=== PATIENT | female | born 1995 | race Caucasian/White ===

== ENCOUNTER 2025-06-18 04:23 | Emergency (ER) | payer OTHER ==
[~2025-06-18] VITALS: Ht 162.6 cm; Wt 79.5 kg
--- NOTE | 2025-06-18 04:38 | Physician Documentation ---
HPI ~ General Chief Complaint: Tooth Problem Stated Complaint: DENTAL PAIN Time Seen by MD: 04:37 History of Present Illness HPI Comment Patient presents to the emergency room with chief complaint of dental pain. She recently saw a dentist who put her on antibiotics however that has yesterday and she has been able to get them filled. She has taken ibuprofen Tylenol and Oraj el with limited benefit. No fevers Medication Reconciliation Allergies: Coded Allergies: cat dander (Verified Allergy, Unknown, 06/18/25) Review of Systems ROS All review of systems negative except as per HPI Physical Exam Vital Signs: Temperature: 97.7, Source: Oral, Heart Rate: 92, Respiratory Rate: 16, BP: 117/71, Pulse Oximetry: 98, Weight: 79.450 Oxygen Flow Rate: 0 Physical Exam General: Patient is awake, alert, oriented x4 in no acute distress Head: Normocephalic and atraumatic. Eyes: Conjunctival normal. EOMI. PERRL. ENT: Mucous membranes moist. Broken right upper molar without abscess Neck: Supple, trachea is midline. Chest: Clear to auscultation bilaterally without rales, rhonchi, or wheezes. There is no accessory muscle use or retractions. Cardiac: RRR without murmurs, gallops, or rubs. Progress Results/Orders Results/Orders Vital Signs 06/18/25 04:25 Temp 97.7 Pulse 92 Resp 16 B/P (MAP) 117/71 Pulse Ox 98 O2 Flow Rate 0 Medical Decision Making Additional information obtaine: N/A Findings Patient presents to the emergency room with dental pain that has per HPI. Differentials include but are not limited to dental caries, dental abscess, referred pain, herpangina. Physical exam shows no abnormality other than a broken right posterior upper molar. We will treat her pain acutely. He had not feel emergent labs or imaging is necessary. The need to fill her antibiotic discussed. Differential Dx:Considerations: Include: Alveolar fracture, Alveolar osteitis, ANUG, Facial Cellulitis, Periapical abscess, Peridontal abscess, Post-extraction bleeding, Pulpitis, Tooth avulsion, Tooth eruption, Tooth Fracture, Trigeminal neuralgia, Tooth subluxation, Other Departure Disposition: 01 HOME / SELF CARE / HOMELESS Impression: Primary Impression: Toothache Condition: Stable Discharge Instructions: Dental Pain Referrals: NO PRIMARY CARE PROVIDER (PCP) Prescriptions Hydrocodone Bit/Acetaminophen 5/325 MG ([place] 5/325 MG) 5 Mg/325 Mg Tablet 1-2 TAB PO Q4-6 hours PRN for pain, #10 TAB Prov: TYLER REED MD 06/18/25 Signature Scribe Signature: No scribe Attestation: The note accurately reflects work and decisions made by me.Tyler Reed MD 06/18/25 04:52 TYLER REED MD Jun 18, 2025 04:38
[2025-06-18] MEDS ORDERED: HYDR-3965 PO (04:52)
[2025-06-18] MEDS: oxyCODONE IR 5mg (immed. release) tablet PO ONE (04:54)
[2025-06-18] MEDS: ondansetron 4mg rapidly disintigrating tab PO ONE (04:54)
[2025-06-18 05:05] VITALS: BP 118/74; PULSE 90; RESP 18; TEMP 98.6; O2SAT 99
== END 2025-06-18 05:06 | disposition home or self-care (01) ==
LOC: ER 04:25
DX: K08.89 Other specified disorders of teeth and supporting structures (principal); Z88.8 Allergy status to other drugs, medicaments and biological substances
CPT/HCPCS: 99283